=== PATIENT | female | born 1960 | race Caucasian/White ===

== ENCOUNTER 2017-01-20 12:42 | Emergency (ER) | payer OTHER ==
[2017-01-20 12:47] VITALS: BP 148/94
[2017-01-20] MEDS ORDERED: Tetan/Diph/Pertus SYR(Tdap)* 0.5 ML SYR(BOOSTRIX) use SYR IM ONE (14:15)
--- NOTE | 2017-02-26 19:55 | ED ---
Laceration/Wound HPI - HPI Summary HPI Summary: Patient presents with a cut to her palm that she sustained while trying to cut bread. The knife slipped. She is not sure if her tetanus is up to date. She also mentions that her low back has been bothering her with activities for months. She denies known injury. She denies incontinence of urine or stool. No N /T or trouble ambulating. - History of Current Complaint Stated Complaint: LT HAND LAC Hx Obtained From: Patient Mechanism of Injury: Sharp/Blunt Trauma Onset/Duration: Sudden Onset Aggravating: Movement Alleviating: Compression Timing: Constant Onset Severity: Moderate Current Severity: Moderate Pain Intensity: 4 Pain Scale Used: 0-10 Numeric Associated Signs & Symptoms: Pain Related Hx: Dominant Hand (Right) - Allergy/Home Medications Allergies/Adverse Reactions: Allergies Allergy/AdvReac Type Severity Reaction Status Date / Time ENVIRONMENTAL Allergy Unknown Uncoded 09/22/16 07:58 Reaction Details PMH/Surg Hx/FS Hx/Imm Hx Endocrine/Hematology History: Reports: Hx Anemia - BORDERLINE Denies: Hx Anticoagulant Therapy Respiratory History: Reports: Hx Asthma - ALLERGIC- NO PROBLEMS SINCE Musculoskeletal History: Denies: Other Musculoskeletal History Sensory History: Reports: Hx Contacts or Glasses - GLASSES Denies: Hx Hearing Aid Opthamlomology History: Reports: Hx Contacts or Glasses - GLASSES Neurological History: Reports: Hx Migraine - NOW INFREQUENT- TREATS WITH TYLENOL - Cancer History Hx Chemotherapy: No Hx Radiation Therapy: No - Surgical History Surgery Procedure, Year, and Place: LEFT BREAST BIOPSY-2009. COLONOSCOPY- GENERAL ANESTHESIA Hx Anesthesia Reactions: No Infectious Disease History: No Infectious Disease History: Denies: Traveled Outside the [place] in Last 30 Days - Family History Known Family History: Positive: Unknown - Social History Occupation: Employed Part-time Lives: With Family Alcohol Use: Rare Substance Use Type: Reports: None Smoking Status (MU): Never Smoked Tobacco Review of Systems Positive: Myalgia Positive: Other - 1.5cm laceration to palm Negative: Paresthesia, Numbness All Other Systems Reviewed And Are Negative: Yes Physical Exam Triage Information Reviewed: Yes Vital Signs On Initial Exam: Initial Vitals Temp Pulse Resp BP Pulse Ox 97.7 F 73 20 148/94 100 01/20/17 12:44 01/20/17 12:44 01/20/17 12:44 01/20/17 12:44 01/20/17 12:44 Vital Signs Reviewed: Yes Appearance: Positive: Well-Appearing, Pain Distress, Obese Skin: Positive: Warm, Skin Color Reflects Adequate Perfusion, Dry, Tender - 1.5 cm laceration to left palm, Soft Head/Face: Positive: Normal Head/Face Inspection Eyes: Positive: EOMI, JENNIFER, Conjunctiva Clear ENT: Positive: Hearing grossly normal Respiratory/Lung Sounds: Positive: Breath Sounds Present Cardiovascular: Positive: RRR Musculoskeletal: Positive: Strength/ROM Intact, Pain @ - TTP bilateral lumber muscles. Negative: Edema Left, Edema Right Neurological: Positive: Sensory/Motor Intact, Alert, Oriented to Person Place, Time, NV Bundle Intact Distally, Normal Gait Psychiatric: Positive: Affect/Mood Appropriate AVPU Assessment: Alert Procedures - Laceration/Wound Repair 1 Location: upper extremity - left palm Description: Linear Anesthesia: Local, 2.0%, Lido Length, Depth and Shape: 1.5 cm long, 3mm deep, 3 mm wide Irrigated w/ Saline (ccs): 200 Laceration/Wound Explored: clean Closure: Single Layer Debridement: minimal Suture Type: Nylon - 5.0 Number of Sutures: 6 Layer Closure?: No Sterile Dressing Applied?: Yes Diagnostics - Vital Signs Vital Signs Temp Pulse Resp BP Pulse Ox 01/20/17 15:10 97.8 F 01/20/17 12:44 97.7 F 73 20 148/94 100 - Laboratory Lab Statement: Any lab studies that have been ordered have been reviewed, and results considered in the medical decision making process. Laceration Repair Course/Dx - Differential Dx Differental Diagnoses: Abrasion, Avulsion, Cellulitis, Dehiscence, Hematoma, Laceration, Puncture Wound - Clinical Impression Provider Diagnoses: Laceration of left hand, Low back pain, Tetanus toxoid inoculation Discharge - Discharge Plan Condition: Stable Disposition: HOME Patient Education Materials: Laceration (ED), Low Back Strain (ED), Lower Back Exercises (ED), Tetanus (ED) Referrals: Que Mccabe MD [Primary Care Provider] - Additional Instructions: Keep your dressing clean, dry and in place for the next 24 hours. You may then remove and shower. Pat dry and cover with a clean, dry band-aid if you are going to be in a "dirty" environment, otherwise it can remain open to air. Do not soak the wound in any body of water until the sutures are removed. Elevate the hand above your heart and use Ibuprofen 600mg three times daily with meals for the next 5-7 days to reduce pain and swelling. Follow-up with your primary care provider or return to the emergency department in 10-12 days for suture removal. Return to the emergency department sooner if your symptoms worsen.
== END 2017-01-20 15:10 | disposition home or self-care (01) ==
LOC: ED 12:42
DX: S61.412A Laceration without foreign body of left hand, initial encounter (principal); M54.5 Low back pain; W26.0XXA Contact with knife, initial encounter; Y93.9 Activity, unspecified; Y92.9 Unspecified place or not applicable; Y99.9 Unspecified external cause status
CPT/HCPCS: 12001; 90471; 90715; 99282

== ENCOUNTER 2017-12-01 10:56 | Emergency (ER) | payer OTHER ==
--- NOTE | 2017-12-01 11:58 | UC ---
Respiratory Complaint HPI - HPI Summary HPI Summary: Pt presents with cough, frontal headache, and sinus symptoms. She tells me that 1 week ago she developed a "cold" with sinus congestion/pain/pressure. 3 days ago developed cough and wheezing. Says that as a kid she had a history of asthma and was hospitalized many times, but has not had issues in decades. Denies fever, chills, SOB, chest pain, abdominal pain, N/V/D/C - History of Current Complaint Chief Complaint: UCRespiratory Stated Complaint: COUGH Time Seen by Provider: 12/01/17 11:58 Hx Obtained From: Patient Onset/Duration: Gradual Onset Severity Initially: Mild Severity Currently: Moderate Pain Intensity: 7 Pain Scale Used: 0-10 Numeric Character: Cough: Nonproductive Aggravating Factors: Allergens - Allergies/Home Medications Allergies/Adverse Reactions: Allergies Allergy/AdvReac Type Severity Reaction Status Date / Time ENVIRONMENTAL Allergy Unknown Uncoded 12/01/17 11:45 Reaction Details PMH/Surg Hx/FS Hx/Imm Hx Respiratory History: Asthma Other History Of: Negative For: Anticoagulant Therapy - Surgical History Surgical History: Yes Surgery Procedure, Year, and Place: LEFT BREAST BIOPSY-2009. COLONOSCOPY- GENERAL ANESTHESIA - Family History Known Family History: Positive: Unknown - Social History Lives: With Family Alcohol Use: Rare Substance Use Type: None Smoking Status (MU): Never Smoked Tobacco Review of Systems Constitutional: Negative Skin: Negative Eyes: Negative ENT: Nasal Discharge, Sinus Congestion, Sinus Pain/Tenderness Respiratory: Cough Cardiovascular: Negative Gastrointestinal: Negative All Other Systems Reviewed And Are Negative: Yes Physical Exam Triage Information Reviewed: Yes Appearance: Well-Appearing, Well-Nourished Vital Signs: Initial Vital Signs Temp 99.5 F 12/01/17 11:38 Pulse 113 12/01/17 11:38 Resp 16 12/01/17 11:38 Pulse Ox 99 12/01/17 11:38 Vital Signs Reviewed: Yes Eyes: Positive: Conjunctiva Clear. Negative: Conjunctiva Inflamed, Discharge ENT: Positive: Hearing grossly normal, Pharynx normal, Nasal congestion, Nasal drainage, TMs normal, Sinus tenderness, Uvula midline. Negative: Pharyngeal erythema, TM bulging, TM dull, TM red, Tonsillar swelling, Tonsillar exudate, Hoarse voice Neck: Positive: Supple, Nontender, No Lymphadenopathy Respiratory: Positive: Chest non-tender, No respiratory distress, No accessory muscle use, Crackles - RLL, Wheezing - Moderate throughout Cardiovascular: Positive: RRR, No Murmur, Pulses Normal Neurological: Positive: Alert. Negative: Fatigued Psychological: Positive: Age Appropriate Behavior Skin: Negative: rashes UC Diagnostic Evaluation - Laboratory O2 Sat by Pulse Oximetry: 99 Re-Evaluation - Re-Evaluation First Eval Re-Evaluation Time: 13:30 Change: Improved Comment: Lung sounds significantly improved with much less wheezing throughout. Pt reports feeling greatly improved and feels more "open" Respiratory Course/Dx - Course Course Of Treatment: POC flu negative. CXR - NO EVIDENCE FOR ACTIVE CARDIOPULMONARY DISEASE. DuoNeb - significant improvement. Suspect bronchitis and sinusitis. Albuterol HFA and Amoxicillin - Differential Dx/Diagnosis Differential Diagnosis/HQI/PQRI: Asthma, Bronchitis, Influenza, Lower Resp Infection, Sinusitis Provider Diagnoses: Bronchitis. Sinusitis Discharge - Discharge Plan Condition: Stable Disposition: HOME Prescriptions: Albuterol HFA INHALER* [Ventolin HFA Inhaler*] 2 puff INH Q6H PRN #1 mdi PRN Reason: Sob/Wheezing Amoxicillin PO (*) [Amoxicillin 500 MG CAP*] 500 mg PO Q12H #20 cap Patient Education Materials: Sinusitis (ED), Acute Bronchitis (ED) Referrals: Que Mccabe MD [Primary Care Provider] - Additional Instructions: If you develop a fever, shortness of breath, chest pain, new or worsening symptoms - please call your PCP or go to the ED.
[2017-12-01 12:13] VITALS: BP 153/70
[2017-12-01] MEDS ORDERED: Albuterol/Ipratropium NEB.SOL* Albuterol 2.5 MG/Ipratropium 0.5 MG 3 ML INH ONE (12:35)
--- NOTE | 2017-12-01 13:05 | RAD ---
INDICATION: Cough. COMPARISON: There are no prior studies available for comparison. TECHNIQUE: Dual-energy PA and lateral views of the chest were obtained. FINDINGS: The heart is within normal limits in size. Mediastinal and hilar contours appear within normal limits. There is bilateral apical pleural and parenchymal scarring. The lungs are otherwise clear. No pleural effusion is seen. IMPRESSION: NO EVIDENCE FOR ACTIVE CARDIOPULMONARY DISEASE.
== END 2017-12-01 13:42 | disposition home or self-care (01) ==
LOC: UCEAST 10:56
DX: J40 Bronchitis, not specified as acute or chronic (principal); J32.9 Chronic sinusitis, unspecified
CPT/HCPCS: 71046; 87502; 99212; A9270-GY; G0463

== ENCOUNTER 2019-11-13 15:37 | Emergency (ER) | payer OTHER ==
[2019-11-13] MEDS ORDERED: oxyCODONE TAB* 5 MG TAB PO ONE ×2 (15:50→17:25)
--- NOTE | 2019-11-13 15:50 | ED ---
Adult Trauma - HPI Summary HPI Summary: Patient complains of right ankle, left knee and right wrist pain status post mechanical fall. Also presents with abrasions to left side forehead and nose. Denies LOC, BANG, N/3, vision change, neurological deficits, EMS. Patient is ambulatory. No anti-coag. - History of Current Complaint Chief Complaint: EDExtremityUpper Stated Complaint: HAND INJURY Time Seen by Provider: 11/13/19 15:48 Hx Obtained From: Patient Mechanism of Injury: Fall Loss of Consciousness: no loss of consciousness Onset/Duration: Started Minutes Ago Onset of Pain: Immediate Onset Severity: Severe Current Severity: Severe Pain Intensity: 8 Pain Scale Used: 0-10 Numeric Location: Extremities Aggravating Factor(s): Movement Alleviating Factor(s): Rest, Ice Associated Signs & Symptoms: Positive: Negative - Allergy/Home Medications Allergies/Adverse Reactions: Allergies Allergy/AdvReac Type Severity Reaction Status Date / Time ENVIRONMENTAL Allergy Unknown Uncoded 11/13/19 15:43 Reaction Details PMH/Surg Hx/FS Hx/Imm Hx Endocrine/Hematology History: Reports: Hx Anemia - BORDERLINE Denies: Hx Anticoagulant Therapy Respiratory History: Reports: Hx Asthma - ALLERGIC- NO PROBLEMS SINCE History: Denies: Hx Dialysis Musculoskeletal History: Denies: Other Musculoskeletal History Sensory History: Reports: Hx Contacts or Glasses - GLASSES Denies: Hx Hearing Aid Opthamlomology History: Reports: Hx Contacts or Glasses - GLASSES EENT History: Denies: Hx Deafness Neurological History: Reports: Hx Migraine - NOW INFREQUENT- TREATS WITH TYLENOL - Cancer History Hx Chemotherapy: No Hx Radiation Therapy: No - Surgical History Surgery Procedure, Year, and Place: LEFT BREAST BIOPSY-2009. COLONOSCOPY- GENERAL ANESTHESIA Hx Anesthesia Reactions: No Infectious Disease History: No Infectious Disease History: Denies: History Other Infectious Disease, Traveled Outside the [place] in Last 30 Days - Family History Known Family History: Positive: Unknown - Social History Alcohol Use: Rare Substance Use Type: Reports: None Hx Tobacco Use: No Smoking Status (MU): Never Smoked Tobacco Review of Systems Constitutional: Negative Eyes: Negative ENT: Negative Cardiovascular: Negative Respiratory: Negative Gastrointestinal: Negative Genitourinary: Negative Musculoskeletal: Other Skin: Negative Neurological: Negative Psychological: Normal All Other Systems Reviewed And Are Negative: Yes Physical Exam - Summary Physical Exam Summary: Deformity to right wrist. Abrasions left eyebrow and nose. No pain with palpation of facial bones. Full range of motion of neck and jaw. No evidence of trauma intraorally or on head. Normal exam of left upper extremity. Patient flexes and extends at all joints of bilateral lower extremities. No pain with flexion and extension of right elbow or shoulder. No palpable patient of chest, abdomen, back. Triage Information Reviewed: Yes Vital Signs On Initial Exam: Initial Vitals Temp Pulse Resp BP Pulse Ox 97.1 F 78 16 132/84 100 11/13/19 15:39 11/13/19 15:39 11/13/19 15:39 11/13/19 15:39 11/13/19 15:39 Vital Signs Reviewed: Yes Appearance: Positive: Well-Appearing Skin: Positive: Warm Head/Face: Positive: Normal Head/Face Inspection Eyes: Positive: Normal ENT: Positive: Normal ENT inspection Dental: Negative: Dental Fracture @, Bleeding Neck: Positive: Supple Respiratory/Lung Sounds: Positive: Clear to Auscultation Cardiovascular: Positive: Normal Abdomen Description: Positive: Nontender Musculoskeletal: Positive: Normal Neurological: Positive: Normal Psychiatric: Positive: Normal AVPU Assessment: Alert - Daniel Coma Scale Best Eye Response: 4 - Spontaneous Best Motor Response: 6 - Obeys Commands Best Verbal Response: 5 - Oriented Coma Scale Total: 15 Procedures - Sedation Patient Received Moderate/Deep Sedation with Procedure: No Diagnostics - Vital Signs Vital Signs Temp Pulse Resp BP Pulse Ox 11/13/19 15:39 97.1 F 78 16 132/84 100 - Laboratory Lab Statement: Any lab studies that have been ordered have been reviewed, and results considered in the medical decision making process. Adult Trauma Course/Dx - Course Course Of Treatment: Patient complains of right ankle, left knee and right wrist pain status post mechanical fall. Also presents with abrasions to left side forehead and nose. Denies LOC, BANG, N/3, vision change, neurological deficits, EMS. Patient is ambulatory. No anti-coag. Vital signs within normal limits. X-ray of right ankle, left knee negative for fracture. Positive distal radius and ulnar fracture on right wrist. Orthopedics Dr. Fernandez was in-house attending another patient and agreed to look at x-rays. Dr. Fernandez reduced right wrist and splinted. Has follow-up scheduled for this coming Wednesday. - Diagnoses Provider Diagnoses: Distal radial fracture, Right distal ulnar fracture Discharge ED - Sign-Out/Discharge Documenting (check all that apply): Patient Departure - Discharge Plan Condition: Stable Disposition: HOME Prescriptions: Oxycodone HCl 5 mg PO Q6H 2 Days #8 tablet MDD 4 tabs Patient Education Materials: Wrist Fracture in Adults (ED) Referrals: Que Mccabe MD [Primary Care Provider] - Francesca Fernandez MD [Medical Doctor] - Additional Instructions: Follow-up appointment with orthopedics Dr. Fernandez at her clinic on Wednesday. Take pain medication as directed. Return to the ED for any new or worsening symptoms. - Billing Disposition and Condition Condition: STABLE Disposition: Home
[2019-11-13 18:56] VITALS: BP 135/86
--- NOTE | 2019-11-14 10:15 | ED ---
Imaging and Labs Follow Up Follow Up Type: Imaging Imaging Result: IMPRESSION: COMMINUTED DISPLACED INTRA-ARTICULAR FRACTURE OF THE DISTAL RADIUS AND FRACTURE OF THE ULNAR STYLOID PROCESS STATUS POST EXTERNAL REDUCTION, UNCHANGED SIGNIFICANTLY. R1F Preliminary Imaging Read R1F Patient Communication/Plan: Pt. treated appropriately in ED. No change in treatment needed. Provider Diagnoses: Distal radial fracture, Right distal ulnar fracture Attestation Statement Provider Attestation: I was available for consult. This patient was seen by the AILIN. The patient was not presented to, seen by, or examined by me. -Madina
--- NOTE | 2019-11-14 11:31 | CONS ---
CONSULTATION REPORT: DATE OF CONSULT: 11/13/19 - EMERGENCY DEPT CHIEF COMPLAINT: Right wrist pain. HISTORY OF PRESENT ILLNESS: Ary is a 59-year-old female who was running to catch the mailman to give her some sweet treats when she tripped and fell and landed on her outstretched right hand. She also had a small abrasion on the face, but did not suffer any loss of consciousness. She was brought to the emergency room and had an x-ray, which shows a comminuted intraarticular fracture of the right distal radius which is mildly displaced. PHYSICAL EXAM: She is a healthy-appearing pleasant female, in moderate distress at rest. She has an obvious deformity of her right wrist. She has significant swelling. Her skin is intact. Her neurovascular function is intact. She can make a fist and extend her fingers well. She has normal elbow motion. DIAGNOSTIC STUDIES: I reviewed her x-ray - AP, lateral, and oblique of the right wrist, which shows a very comminuted intraarticular fracture of the distal radius with some displacement. IMPRESSION: Right distal radius fracture. PROCEDURE: The patient was given a hematoma block with 10 cc of 1% plain lidocaine. The fracture was then manipulated and placed in a sugar-tong splint. The patient had marked improvement in her pain. A postreduction x-ray showed some improvement in alignment of the fracture fragments, but still some displacement because of the comminuted nature of the fracture. PLAN: The patient will follow up in my office in 2 days and we will plan for surgical treatment of her distal radius fracture. [id number]/[facility] #: [id number] JUSTINE
== END 2019-11-13 18:55 | disposition home or self-care (01) ==
LOC: ED 15:37
DX: S52.571A Other intraarticular fracture of lower end of right radius, initial encounter for closed fracture (principal); S52.611A Displaced fracture of right ulna styloid process, initial encounter for closed fracture; S00.81XA Abrasion of other part of head, initial encounter; S00.31XA Abrasion of nose, initial encounter; W01.0XXA Fall on same level from slipping, tripping and stumbling without subsequent striking against object, initial encounter; Y93.02 Activity, running; Y92.9 Unspecified place or not applicable
CPT/HCPCS: 25605; 99282; A9270-GY

== ENCOUNTER 2019-11-24 10:42 | Day surgery (SDC) | payer OTHER ==
[~2019-11-24 10:42] MED LIST: Buffered Lidocaine 1% SYRIN* 1 ML/SYRINGE INTRADERM ONE; Famotidine IV* 10 MG/ML 2 ML (20 mg) IV ONE; Famotidine IV* 10 MG/ML 2 ML (20 mg) ONE; Lactated Ringers 1000 ML Bag* 1,000 ML IV SCH; ceFAZolin 2 GM PREMIX in ORs 2 GM/50 ML BAG ONE
[2019-11-24] MEDS ORDERED: Midazolam* 1 MG/ML 5 ML VIAL (5 MG) ONE (11:57)
[2019-11-24] MEDS ORDERED: Bupivacaine 0.5% SDV PF* 30ML VIAL ONE (12:09)
[2019-11-24] MEDS ORDERED: Naloxone* 0.4 MG/ML 1 ML VIAL IV PRN (12:24)
[2019-11-24] MEDS ORDERED: DiMENhydriNATE IV* 50 MG/ML VIAL IV PUSH PRN (12:24)
[2019-11-24] MEDS ORDERED: Acetaminophen TAB* 325 MG PO PRN (12:24)
[2019-11-24] MEDS ORDERED: fentaNYL* 50 MCG/ML 2 ML VIAL (100 MCG VIAL) ONE (12:40)
[2019-11-24] MEDS ORDERED: Ketorolac INJ* 30 MG/ML 1 ML VIAL ONE (12:43)
[2019-11-24] MEDS ORDERED: Lidocaine 2% PF * 5 ML VIAL ONE (12:43)
[2019-11-24] MEDS ORDERED: Dexamethasone IV* 4 MG/ML 1 ML (4 MG) ONE (12:43)
[2019-11-24] MEDS ORDERED: Ondansetron INJ* 2 MG/ML VIAL ONE (12:43)
[2019-11-24] MEDS ORDERED: Propofol* 10 MG/ML 20 ML BTL ONE (12:43)
[2019-11-24] MEDS ORDERED: HYDROmorphone INJ* 0.5 MG/0.5 ML SYRINGE ONE (13:14)
[2019-11-24] MEDS ORDERED: oxyCODONE/Acetamin 5/325 MG* TAB ONE (13:38)
[2019-11-24] MEDS ORDERED: HYDROmorphone INJ1* 1 MG/ML SYRINGE ONE (13:38)
[2019-11-24] MEDS: HYDROmorphone INJ1* 1 MG/ML SYRINGE IV PRN ×5 (13:40→14:14)
[2019-11-24] MEDS ORDERED: oxyCODONE/Acetamin 5/325 MG* TAB PO ONE (13:45)
[2019-11-24 15:09] VITALS: BP 150/60
--- NOTE | 2019-11-25 01:24 | OP ---
CC: Francesca Fernandez MD OPERATIVE REPORT: DATE OF OPERATION: 11/24/19 DATE OF : 56 SURGEON: Francesca Fernandez MD COAT CHECKER: DINA Chavarria ANESTHESIA: General. PRE-OP DIAGNOSIS: Comminuted intraarticular fracture of the distal radius on the right. POST-OP DIAGNOSIS: Comminuted intraarticular fracture of the distal radius on the right. OPERATIVE PROCEDURE: Open reduction internal fixation of the right distal radius. ESTIMATED BLOOD LOSS: Zero. TOURNIQUET TIME: 45 minutes. INDICATIONS FOR PROCEDURE: Ary is a 59-year-old woman who was running to catch her mail clerk bills to give her some sweets and she tripped on the sidewalk and fell onto her outstretched right wrist. Mitch shelby came to the emergency room, had some x- rays, which showed a comminuted intraarticular fracture of the distal radius by attempted closed reduction, but the reduction was not adequate. CT scan was the n obtained, which showed severe comminution in the intraarticular fracture. She presents for ORIF of the distal radius. DESCRIPTION OF PROCEDURE: The patient was brought to the operating room, was given a general anesthe tic and placed in the supine position on the operating table with the tourniquet around her right upp er arm. Skin of her right upper extremity was prepped and draped in usual sterile fashion. The uppe r extremity was exsanguinated and the tourniquet elevated to 250 mmHg. A longitudinal incision was m canelo over the FCR tendon, we dissected sharply through the FCR tendon sheath. The FPL muscle and tend on were retracted ulnarly and then the pronator quadratus was separately dissected off the distal rad ius. The fracture fragments were reduced with traction and manipulation and then a plate from the 2. 4 variable angle distal radius set was secured with 6 distal and 4 proximal screws. The position of the hardware and fracture fragments were checked on the C-arm in the AP and lateral views and found t o be satisfactory. The wound was copiously irrigated with saline. The pronator quadratus was repair ed over the plate with 2-0 Vicryl suture. The FCR tendon sheath was repaired with 2-0 Vicryl and the skin edges reapproximated with 4-0 nylon suture. The wound was dressed with Xeroform, 4x4 Webril an d a volar splint. The patient tolerated the procedure and was brought to the recovery room in good co ndition. [id number]/[facility] #: [id number]
== END 2019-11-24 15:05 | disposition home or self-care (01) ==
LOC: OREAST 10:42
PROVIDERS: ATTEND Orthopaedic Surgery
DX: S52.571A Other intraarticular fracture of lower end of right radius, initial encounter for closed fracture (principal); W01.0XXA Fall on same level from slipping, tripping and stumbling without subsequent striking against object, initial encounter; Y93.89 Activity, other specified; Y92.480 Sidewalk as the place of occurrence of the external cause
CPT/HCPCS: 76000; A9270-GY; C1713; C1776; J0690; J1100; J1170; J1885; J2250; J2405; J2704; J3010; J3490